=== PATIENT | female | born 1980 | race Caucasian/White ===

== ENCOUNTER 2022-09-23 07:06 | Emergency (ER) | payer OTHER ==
[~2022-09-23] VITALS: Ht 162.6 cm; Wt 63.5 kg
[2022-09-23 07:08] VITALS: BP_SYST 116
--- NOTE | 2022-09-23 07:10 | NUR ---
PT BIB EMS FROM HOME WITH C/O SEVERE ABN PAIN - 10/10, LOWER BACK PAIN, AND N/V FOR THE PAST 24 HRS. PT STATES SHE STARTED VOMITTING ONCE TODAY. HX - PT SMOKES MARIJUANA DAILY. PT IS AAX04, PT IS IN ACUTE DISTRESS, VSS, PT AMBULATES WITH A STEADY GAIT. PT IS ON SCALP TREATMENT OPERATOR SHOWING NSR. SAFETY PRECAUTIONS AND COMFORT MEASURES ARE IN PLACE. PENDING MD ASHLEYAL AND ORDERS.
--- NOTE | 2022-09-23 07:11 | NUR ---
ORALIA Clemente at bedside examining patient.
--- NOTE | 2022-09-23 07:12 | NUR ---
Patient to ER bed 05 to gown for evaluation. Side rails up. Report given to MAKAYLA WEAVER.
[2022-09-23] MEDS ORDERED: NACL 0.9% 1,000 ML IV ONE (07:30)
[2022-09-23] MEDS ORDERED: DIPHENHYDRAMINE INJ 50 MG/ML VIAL IVP ONE (07:30)
[2022-09-23] MEDS ORDERED: HALOPERIDOL LACTATE 5 MG/ML VIAL IVP ONE (07:30)
[2022-09-23 08:25] LABS: BASOPHILS % (AUTO) 0.1 % (0.0-2.0); HEMATOCRIT 38.9 % (36-48); HEMOGLOBIN 13.3 g/dL (12.0-16.0); LYMPHOCYTES # (AUTO) 1.6 K/uL (1.0-5.5); LYMPHOCYTES % (AUTO) 6.9 % (20.5-51.5); MEAN CORPUSCULAR HEMOGLOBIN 31 pg (27-31); MEAN CORPUSCULAR HGB CONC 34 % (32-36); MEAN CORPUSCULAR VOLUME 92 fL (79.0-98.0); MONOCYTES # (AUTO) 1.1 K/uL (0.0-1.0); MONOCYTES % (AUTO) 4.8 % (1.7-9.3); NEUTROPHILS # (AUTO) 20.6 K/uL (1.8-7.7); PLATELET COUNT (AUTO) 295 K/uL (130-430); RED BLOOD CELL COUNT(AUTO) 4.22 MIL/uL (4.2-6.2); RED CELL DISTRIBUTION WIDTH 13.1 % (9.0-15.0); WHITE BLOOD COUNT (AUTO) 23.4 K/uL (4.8-10.8)
[2022-09-23 08:54] LABS: CREATININE 0.91 mg/dL (0.55-1.30)
[2022-09-23 08:58] LABS: ALBUMIN 3.3 g/dL (3.4-4.8); TOTAL BILIRUBIN 1.1 mg/dL (0.0-1.0)
[2022-09-23 10:25] LABS: BASOPHILS % (AUTO) 0.2 % (0.0-2.0); HEMATOCRIT 37.1 % (36-48); HEMOGLOBIN 12.5 g/dL (12.0-16.0); LYMPHOCYTES # (AUTO) 1.9 K/uL (1.0-5.5); LYMPHOCYTES % (AUTO) 8.3 % (20.5-51.5); MEAN CORPUSCULAR HEMOGLOBIN 31 pg (27-31); MEAN CORPUSCULAR HGB CONC 34 % (32-36); MEAN CORPUSCULAR VOLUME 92 fL (79.0-98.0); MONOCYTES # (AUTO) 1.4 K/uL (0.0-1.0); MONOCYTES % (AUTO) 5.9 % (1.7-9.3); NEUTROPHILS # (AUTO) 19.8 K/uL (1.8-7.7); NEUTROPHILS % (AUTO) 85.6 % (40.0-70.0); PLATELET COUNT (AUTO) 260 K/uL (130-430); RED BLOOD CELL COUNT(AUTO) 4.04 MIL/uL (4.2-6.2); RED CELL DISTRIBUTION WIDTH 12.9 % (9.0-15.0); WHITE BLOOD COUNT (AUTO) 23.2 K/uL (4.8-10.8)
[2022-09-23] MEDS ORDERED: ONDA-8 TL (10:32)
--- NOTE | 2022-09-23 10:47 | NUR ---
PT MEDICALLY CLEARED FOR D/C. D/C INSTRUCTIONS GIVEN TO PT. PT TO FOLLOW-UP WITH PCP WITHIN 1-3 DAYS AND TO RETURN TO ED FOR WORSENING S/S. PT VERBALIZED UNDERSTANDING. PT AAOX4, NAD, VSS, WRITSTBAND REMOVED. PT AMBULATORY WITH STEADY GAIT. PT LEFT WITH ALL BELONGINGS.
[2022-09-23 10:53] VITALS: BP_SYST 117
[2022-09-23 11:59] LABS: NEUTROPHILS % (AUTO) 88.2 % (40.0-70.0)
== END 2022-09-23 10:47 | disposition home or self-care (01) ==
LOC: SED 07:06
DX: R11.10 Vomiting, unspecified (principal); D72.829 Elevated white blood cell count, unspecified; R10.13 Epigastric pain; R51.9 Headache, unspecified; F12.90 Cannabis use, unspecified, uncomplicated; Z79.899 Other long term (current) drug therapy
CPT/HCPCS: 99284; 96374; 96361; 96375; 80053; 83690; 85025; 36415; 93005; J1200; J1630; J7030

== ENCOUNTER 2022-09-27 01:29 | Inpatient (IN) | payer OTHER ==
[~2022-09-27] VITALS: Ht 154.9 cm; Wt 70.8 kg
[2022-09-27] VITALS (17 sets, daily range): BP systolic 97–156
[~2022-09-27 01:29] MED LIST: ONDA-8 TL
--- NOTE | 2022-09-27 01:36 | NUR ---
Patient triaged and placed in RM. VSS and patient appears in no acute distress at this time. Accompanied by EMS, and MD notified of need for MSE. rEPORT GIVEN TO SHE BENAVIDES.
[2022-09-27] MEDS ORDERED: ASPIRIN 81 MG TAB.CHEW PO ONE (01:45)
--- NOTE | 2022-09-27 02:12 | NUR ---
AT BEDSIDE FOR EVALUATION AND ORDERS. EKG COMPLETED. 20 GUAGE IV ESTABLISHED IN LEFT AC. SWAB FOR COVID AND INFLUENZA COLLECTED
--- NOTE | 2022-09-27 02:12 | NUR ---
Swabbed patient for Covid Sally AND INFLUENZA A & B as ordered by Dr. Smith. Patient tolerated the procedure well. Specimen dropped off at the lab.
[2022-09-27 02:24] LABS: ALANINE AMINOTRANSFERASE 21 U/L (12-78); ALBUMIN 2.5 g/dL (3.4-4.8); ASPARTATE AMINOTRANSFERASE 20 U/L (10-37); CALCIUM 9.3 mg/dL (8.4-11.0); CHLORIDE 97 mmol/L (98-107); CREATININE 1.13 mg/dL (0.55-1.30); GFR AFRICAN AMERICAN 68 mL/min (>90); GLUCOSE 101 mg/dL (70-99); TOTAL BILIRUBIN 0.3 mg/dL (0.0-1.0); UREA NITROGEN, BLOOD 9 mg/dL (8-21)
[2022-09-27 02:29] LABS: HEMATOCRIT 39.7 % (36-48); HEMOGLOBIN 13.4 g/dL (12.0-16.0); MEAN CORPUSCULAR HEMOGLOBIN 31 pg (27-31); MEAN CORPUSCULAR HGB CONC 34 % (32-36); MEAN CORPUSCULAR VOLUME 92 fL (79.0-98.0); PLATELET COUNT (AUTO) 362 K/uL (130-430); RED BLOOD CELL COUNT(AUTO) 4.32 MIL/uL (4.2-6.2); RED CELL DISTRIBUTION WIDTH 12.8 % (9.0-15.0); WHITE BLOOD COUNT (AUTO) 27.1 K/uL (4.8-10.8)
[2022-09-27 02:30] LABS: ANION GAP 11 (5-15)
[2022-09-27] MEDS ORDERED: POTASSIUM CHLORIDE 20 MEQ TAB.PRT.SR PO ONE (02:45)
[2022-09-27 02:58] LABS: BAND % (MANUAL) 18 % (0-6); BASOPHILS % (MANUAL) 0 % (0-2); EOSINOPHILS % (MANUAL) 0 % (0-7); LYMPHOCYTES % (MANUAL) 11 % (20-46); MONOCYTES % (MANUAL) 6 % (0-11)
[2022-09-27 03:12] LABS: METAMYELOCYTES % 2 % (0-0)
[2022-09-27] MEDS ORDERED: LORazepam 2 MG/ML VIAL IVP ONE ×2 (03:15→04:15)
[2022-09-27] MEDS ORDERED: iohexoL 350 mgI/mL, 100 ML INFUS..BTL IV ONE (03:19)
--- NOTE | 2022-09-27 03:20 | NUR ---
PT BECOMING INCREASINGLY AGITATED. MD AT BEDSIDE FOR EVAL. NEW MED AND RADIOLOGY ORDER
--- NOTE | 2022-09-27 03:49 | NUR ---
Patient taken to CT.
--- NOTE | 2022-09-27 03:52 | NUR ---
Patient is back from CT.
--- NOTE | 2022-09-27 04:20 | NUR ---
PT AGITATION LEVEL INCREASING. NEW MED ORDERFOR ATIVAN
--- NOTE | 2022-09-27 04:35 | NUR ---
AGAIN AT BEDSIDE. NEW ORDERS FOR ADDITIONAL RESP SUPPORT. PT PLACED ON BI PAP
[2022-09-27] MEDS ORDERED: methylPREDNISolone SOD SUCC/PF 62.5 MG/ML VIAL IVP ONE (05:00)
--- NOTE | 2022-09-27 06:04 | NUR ---
Admit bed requested Patient will be admitted to care of . Admitted to ICU unit. Diagnosis PNEUMONIA/ HYPOXIA Inpatient (Yes or No) N Observation (Yes or No) Y Orientation concerns or request close to nursing station (Yes or No) N Covid Status NEG On vent or bipap BIPAP Isolation requirements NONE Needs a sitter N From Home (Yes or if No enter name of facility) Y Requires Dialysis (Yes or No) N Med Rec Completed (Yes of No) Y
--- NOTE | 2022-09-27 07:10 | NUR ---
PT RECEIVED, CARE ASSUMED. PT OBTUNDED IN BED. PT ON BIPAP. V/S NOTED, WILL CONTINUE TO MONITOR
--- NOTE | 2022-09-27 08:16 | NUR ---
PT TAKEN TO ICU-4 WITH RT, REPORT TO PHILLY BENAVIDES.
--- NOTE | 2022-09-27 08:17 | NUR ---
Patient will be admitted to [facility]. Admitted to [ICU unit. Will go to room [4]. Belongings list completed. Complete and up to date summary report printed. SBAR report to be given at bedside with opportunity for questions.
--- NOTE | 2022-09-27 08:18 | NUR ---
814 TRANSFERRED PATIENT TO ICU 4 FROM ER 2 VIA NRB WITH 15LPM. PATIENT BACK ON BIPAP 06/10, FIO2 40%. SPO2 97%, HR 114. NO RESPIRATORY DIST Addendum: 09/27/22 at 0821 by Citlali Ovalle RT 814 TRANSFERRED PATIENT TO ICU 4 FROM ER 2 VIA NRB WITH 15LPM. PATIENT BACK ON BIPAP 06/10, FIO2 40%. SPO2 97%, HR 114. NO RESPIRATORY DISTRESS NOTED.
--- NOTE | 2022-09-27 08:44 | NUR ---
Called Dr. Garcia with a consult, spoke with Nohemi from the exchange. Dr. Sterling environmental department manager today for dr. Garcia
[2022-09-27] MEDS ORDERED: POTASSIUM CHLORIDE 40 MEQ in NS 250 ML IV ONE (08:45)
--- NOTE | 2022-09-27 08:50 | NUR ---
Called Dr. Laron Alcala with a consult, spoke with Nohemi from the exchange
[2022-09-27] MEDS ORDERED: AZITHROMYCIN 250 MG TABLET PO SCH (09:00)
[2022-09-27] MEDS ORDERED: cefTRIAXone 1 GM VIAL IM SCH (09:00)
[2022-09-27] MEDS: D5/0.45 NS 1,000 ML IV SCH ×2 (09:29→17:28)
--- NOTE | 2022-09-27 09:30 | NUR ---
PT AAOX4, DROWSY FROM ATIVAN IN ER. ASKED IF PATIENTS WANTS AND IS OK WITH ROSALES CATHETER INSERTION. PT REFUSED, STATED SHE WILL CALL AND USE BED LIZAMA. MD MCKENZIE MADE AWARE.
[2022-09-27] MEDS: IPRATROPIUM/ALBUTEROL SULFATE 3 ML AMPUL.NEB (DUONEB) INH SCH ×4 (11:00→21:30)
--- NOTE | 2022-09-27 11:30 | NUR ---
PER DREAD, PT TAKES 120MG DAILY METAHDONE PO FOR CHRONIC PAIN. CLARIFIED DOSE, DREAD STATES 120MG QDAILY PO. CALLED MD METZ FOR ORDER, TELEPHONE ORDER RECEIVED WITH READBACK.
[2022-09-27] MEDS ORDERED: METHADONE HCL 10 MG TABLET PO ONE (12:15)
[2022-09-27] MEDS: methylPREDNISolone SOD SUCC/PF 62.5 MG/ML VIAL IV SCH ×2 (14:11→22:00)
--- NOTE | 2022-09-27 14:31 | NUR ---
1415 OFF BIPAP AND PLACED ON OXYMIZER 5LPM FOR GIVING A BREAK FROM BIPAP. SPO2 94%, HR 108. PATIENT TOLERATING WELL. RN AWARE.
[2022-09-27] MEDS: cefTRIAXone 1 GM in D5W 50 ML IV SCH (18:08)
[2022-09-27] MEDS ORDERED: IPRATROPIUM/ALBUTEROL SULFATE 3 ML AMPUL.NEB (DUONEB) INH PRN (21:30)
[2022-09-28] VITALS (22 sets, daily range): BP systolic 105–137
[2022-09-28] MEDS: D5/0.45 NS 1,000 ML IV SCH ×3 (00:24→15:42)
[2022-09-28] MEDS: IPRATROPIUM/ALBUTEROL SULFATE 3 ML AMPUL.NEB (DUONEB) INH SCH ×4 (01:00→19:35)
[2022-09-28 05:26] LABS: HEMATOCRIT 31.2 % (36-48); HEMOGLOBIN 10.6 g/dL (12.0-16.0); MEAN CORPUSCULAR HEMOGLOBIN 31 pg (27-31); MEAN CORPUSCULAR HGB CONC 34 % (32-36); MEAN CORPUSCULAR VOLUME 91 fL (79.0-98.0); PLATELET COUNT (AUTO) 287 K/uL (130-430); RED BLOOD CELL COUNT(AUTO) 3.44 MIL/uL (4.2-6.2); RED CELL DISTRIBUTION WIDTH 13.4 % (9.0-15.0); WHITE BLOOD COUNT (AUTO) 24.3 K/uL (4.8-10.8)
[2022-09-28 05:34] LABS: CALCIUM 9.1 mg/dL (8.4-11.0); CREATININE 0.86 mg/dL (0.55-1.30)
[2022-09-28 05:43] LABS: ALBUMIN 2.1 g/dL (3.4-4.8); TOTAL BILIRUBIN 0.2 mg/dL (0.0-1.0)
[2022-09-28 06:14] LABS: BAND % (MANUAL) 17 % (0-6); BASOPHILS % (MANUAL) 0 % (0-2); EOSINOPHILS % (MANUAL) 0 % (0-7); LYMPHOCYTES % (MANUAL) 11 % (20-46); MONOCYTES % (MANUAL) 4 % (0-11)
[2022-09-28] MEDS: methylPREDNISolone SOD SUCC/PF 62.5 MG/ML VIAL IV SCH ×2 (06:27→14:55)
[2022-09-28] MEDS: METHADONE HCL 10 MG TABLET PO SCH (08:21)
[2022-09-28] MEDS ORDERED: DOPamine PREMIX 250 ML IV PRN (08:30)
[2022-09-28] MEDS ORDERED: LORazepam 2 MG/ML VIAL IVP PRN (08:30)
[2022-09-28] MEDS: PANTOPRAZOLE SODIUM 40 MG/VIAL (PROTONIX) IVP SCH (09:00)
--- NOTE | 2022-09-28 09:40 | NUR ---
Dietitian Recommendations * Continue regular diet * Ordered Ensure HP BID * Send snacks BID; RD entered in computrition GS, MPH, RD Please refer to RD Assessment for further details. Thanks! Addendum: 09/28/22 at [address] Amended: Links added.
--- NOTE | 2022-09-28 10:00 | NUR ---
[pt is refusing to wear ekg leads
[2022-09-28] MEDS: AZITHROMYCIN 250 MG in NS 250 ML IV SCH (11:41)
[2022-09-28] MEDS: cefTRIAXone 1 GM in D5W 50 ML IV SCH (17:59)
[2022-09-29] VITALS (12 sets, daily range): BP systolic 124–153
[2022-09-29] MEDS: IPRATROPIUM/ALBUTEROL SULFATE 3 ML AMPUL.NEB (DUONEB) INH SCH ×4 (00:25→19:00)
[2022-09-29] MEDS: methylPREDNISolone SOD SUCC/PF 62.5 MG/ML VIAL IV SCH ×4 (05:23→23:36)
[2022-09-29] MEDS: D5/0.45 NS 1,000 ML IV SCH ×4 (05:28→23:37)
[2022-09-29 05:42] LABS: BASOPHILS % (AUTO) 0.1 % (0.0-2.0); HEMATOCRIT 32.2 % (36-48); HEMOGLOBIN 10.8 g/dL (12.0-16.0); LYMPHOCYTES % (AUTO) 8.8 % (20.5-51.5); MEAN CORPUSCULAR HEMOGLOBIN 31 pg (27-31); MEAN CORPUSCULAR HGB CONC 34 % (32-36); MEAN CORPUSCULAR VOLUME 92 fL (79.0-98.0); MONOCYTES # (AUTO) 1.1 K/uL (0.0-1.0); MONOCYTES % (AUTO) 4.7 % (1.7-9.3); NEUTROPHILS # (AUTO) 19.9 K/uL (1.8-7.7); NEUTROPHILS % (AUTO) 86.4 % (40.0-70.0); PLATELET COUNT (AUTO) 328 K/uL (130-430); RED BLOOD CELL COUNT(AUTO) 3.51 MIL/uL (4.2-6.2); RED CELL DISTRIBUTION WIDTH 13.6 % (9.0-15.0); WHITE BLOOD COUNT (AUTO) 23.1 K/uL (4.8-10.8)
[2022-09-29 06:02] LABS: ALBUMIN 2.1 g/dL (3.4-4.8); CALCIUM 9.2 mg/dL (8.4-11.0); CREATININE 0.92 mg/dL (0.55-1.30); TOTAL BILIRUBIN 0.1 mg/dL (0.0-1.0)
--- NOTE | 2022-09-29 07:30 | NUR ---
RECEIVED PT FROM TIM RN. PT IS AWAKE AND ALERT X3, ON BIPAP 12/6 @ 35% FIO2 BREATHING E/U. IN NO DISTRESS. BED LOW AND CALL LIGHT IN EASY REACH. WILL CONTINUE TO MONITOR CLOSELY.
[2022-09-29] MEDS: AZITHROMYCIN 250 MG in NS 250 ML IV SCH (09:29)
[2022-09-29] MEDS: PANTOPRAZOLE SODIUM 40 MG/VIAL (PROTONIX) IVP SCH (09:30)
[2022-09-29] MEDS: METHADONE HCL 10 MG TABLET PO SCH (09:31)
[2022-09-29 10:00] LABS: BARBITURATE, URINE NEGATIVE (NEG <=200); BENZODIAZEPINE, URINE POSITIVE (NEG <=150); CANNABINOID, URINE POSITIVE (NEG <=50); COCAINE, URINE NEGATIVE (NEG <=150); METHAMPHETAMINES SCREEN,URINE NEGATIVE (NEG <=500); OPIATE, URINE NEGATIVE (NEG <=100); PHENCYCLIDINE SCREEN,URINE NEGATIVE (NEG <=25); UR TRICYCLIC ANTIDEPRESSANTS NEGATIVE (NEG <=300); URINE AMPHETAMINE NEGATIVE (NEG <=500); URINE METHADONE POSITIVE (NEG <=200); URINE OXYCODONE SCREEN NEGATIVE (NEG <=100); URINE PROPOXYPHENE SCREEN NEGATIVE (NEG <=300)
--- NOTE | 2022-09-29 12:02 | NUR ---
OPENING NOTES: RECEIVED SBAR FROM ICU NURSE LYNDON RN, PATIENT IS STABLE, NO S/S DISTRESS NC 4 LTS, BED AT LOW AND LOCKED POSITION CALL LIGHT IN REACH ALL SAFETY CHECKS DONE AND WILL DO THOUGHT THE DAY.
[2022-09-29] MEDS ORDERED: methylPREDNISolone SOD SUCC/PF 62.5 MG/ML VIAL IV ONE (14:15)
[2022-09-29] MEDS: traMADol HCL HCL 50 MG TABLET (ULTRAM) PO PRN ×2 (14:44→23:46)
--- NOTE | 2022-09-29 14:49 | NUR ---
Machine Rope Maker DESKTOP SUPPORT ENGINEER introduced self to pt. and . Also present were couples daughter, Megha (11/01/09). Pt. stated she also has a son, Armando (09/17/07). Dtr. Megha stated she attends attend middle school and brother attends [employer]. Pt. was just downgraded from ICU. During this interview, DESKTOP SUPPORT ENGINEER experiences this pt. to be tearful , emotional and at times combative with her . DESKTOP SUPPORT ENGINEER asked who was interjecting if he wanted to stay, he would have to allow for DESKTOP SUPPORT ENGINEER to ask questions. (To be continued on 09/29/22). Addendum: 09/30/22 at 1142 by Talia MELENDREZ Machine Rope Maker Continuation from 09/29/22 initial contact agreed not to interject. DESKTOP SUPPORT ENGINEER continued interviewing pt who at times continued to be tearful, emotional and upset at the same time. DESKTOP SUPPORT ENGINEER reassured pt. she was in good hands. DESKTOP SUPPORT ENGINEER asked pt. about her living arrangements. The family of 4 reside at the [facility], costing about $500 weekly not including the cost of food. Her and 's combined income (husbands senior care, pts. disability) is $3000 per month. Pt. stated it is not enough. DESKTOP SUPPORT ENGINEER asked pt. if she had ever been Dx with anxiety, or depression. Pt. stated she use to take meds for anxiety and depression, but could not recall the name of the medication. DESKTOP SUPPORT ENGINEER suggested she inquire with her attending re. an evaluation for anti-anxiety med. Pt. denied being suicidal today. DESKTOP SUPPORT ENGINEER spoke to Rn. and requested she ask the attending to address this concern. DESKTOP SUPPORT ENGINEER called todays Rn. who stated she was in the room at the time of the CABLE SYSTEMS INSTALLER evaluation of pt who assessed pt. for depression and anxiety. Pt. stated every 28 days, they have to [place] the [facility] and have to stay in the family van for 3 days until they can go back to the [facility] for another 28 days. Pt and both stated they are on Methadone, daily. Both did not like to talk about this subject and became excited stating they are not drug addicts. They stated they take methadone to avoid any withdrawals from pain meds., not because they are drug addicts. DESKTOP SUPPORT ENGINEER provided the family with numerous homeless packet resources and explained them. DESKTOP SUPPORT ENGINEER gave pt. the contact info for her PCP, Dr. Adriel Lindo. DESKTOP SUPPORT ENGINEER stated she may need to make a follow up appointment with him. DESKTOP SUPPORT ENGINEER asked which pharmacy they use and their reply was the [facility] on [facility]. DESKTOP SUPPORT ENGINEER will remain available as needed. Addendum: 09/30/22 at 1153 by Talia Cohn MSW Machine Rope Maker DESKTOP SUPPORT ENGINEER spoke to pt who had been sleeping. Pt. was not in agreement to go to a SNF to get stronger, stating, "I can take care of myself". DESKTOP SUPPORT ENGINEER asked pt. to just think about it so this could be a safe discharge and she has time to get stronger. DESKTOP SUPPORT ENGINEER asked pt. to think about this plan. DESKTOP SUPPORT ENGINEER also asked pt. if they were currently in the [facility] or in the van. Pt. stated they were in the [facility] at this moment. DESKTOP SUPPORT ENGINEER called to speak to , no answer, left a message. .
[2022-09-29] MEDS: cefTRIAXone 1 GM in D5W 50 ML IV SCH (18:29)
--- NOTE | 2022-09-29 18:29 | NUR ---
CLOSING NOTES: PATIENT REMAINED STABLE TODAY, ALL SAFETY CHECKS DONE THOUGHT THE DAY, PATIENT RESTING WELL IN BED WATCHING TV, BED AT LOW AND LOCKED POSITION IV INTACT CLEAN AND INTACT, FAMILY VISITED PATIENT TODAY, NO S/S OF ANY DISTRESS WILL GIVE PM SHIFT NURSE BEDSIDE SBAR.
--- NOTE | 2022-09-29 20:05 | NUR ---
PM ASSESSMENT; - Patient is awake, alert, oriented X 4. Patient oriented to hospital room, call light, toileting, pain management and safety-teach back done. Pt denies any chest pain,pain,sob,or any acute distress. A telemetry shows 58bpm bradycardia. Patient informed that will be nurse and that their room number is 118-A. Pt is on oximizer with 4L l5bdl=68%. IVF infusing well. Pt uses BIPAP machine at night for sleep apnea. Iv site patent, no s/s any infiltration noted. Call light within reach, side rails x2. Cont to monitor pt.
--- NOTE | 2022-09-29 23:46 | NUR ---
NOTES; PAIN MGMT GIVEN -Pt is c/o headache, gave pain med for pain mgmt upon pt's request. Call light w/in reach, side rails x2. cont to monitor pt.
[2022-09-30 00:05] VITALS: BP_SYST 156
--- NOTE | 2022-09-30 02:03 | NUR ---
NOTES; -Pt is resting in bed comfortably. A telemetry show sinus bradycardia 36-44 bpm. Pt is asymptomatic. Elevate BP 174/97, 96.6, 16, o9szy=74% with Bipap machine for sleeping. Will call Dr. Villalta regarding bradycardia.
--- NOTE | 2022-09-30 02:09 | NUR ---
NOTES; Notified Dr. Villalta REGARDING BRADYCARDIA,EPISODE OF JUNCTIONAL,AND OCCASIONAL P-WAVES. -Notified Dr. Villalta regarding telemetry show sinus bradycardia 36-44 bpm. Pt is asymptomatic. Elevate BP 174/97, 96.6, 16, n7tfa=82% with Bipap machine for sleep apnea. Dr. Villalta said, " It's okay and EKG in am. " continue to monitor pt.
[2022-09-30] MEDS: methylPREDNISolone SOD SUCC/PF 62.5 MG/ML VIAL IV SCH (05:33)
--- NOTE | 2022-09-30 05:33 | NUR ---
ROUNDS; -Pt is asleep, easily arousable upon making round when gave medication ivp. Patti-RT told earlier that pt is still wanting to use Bipap machine. No s/s any acute distress noted. Pt is still on Bipap machine. All safety measures in place. Call light w/in reach. Cont to monitor pt.
[2022-09-30 05:46] LABS: ALBUMIN 2.2 g/dL (3.4-4.8); CALCIUM 8.8 mg/dL (8.4-11.0); CREATININE 0.92 mg/dL (0.55-1.30); TOTAL BILIRUBIN 0.1 mg/dL (0.0-1.0)
--- NOTE | 2022-09-30 06:30 | NUR ---
CLOSING NOTES; -Pt is asleep. No s/s any acute distress noted. Pt is still on Bipap machine. Pt's condition stable. IV site patent no s/s any infiltration noted. IVF infusing well. All safety measures in place, side rails x2. Call light w/in reach. Will endorse to next nurse to cont care.
[2022-09-30] MEDS: IPRATROPIUM/ALBUTEROL SULFATE 3 ML AMPUL.NEB (DUONEB) INH SCH ×3 (07:47→19:52)
[2022-09-30 08:02] VITALS: BP_SYST 166
[2022-09-30 08:16] LABS: BASOPHILS % (AUTO) 0.2 % (0.0-2.0); EOSINOPHILS # (AUTO) 0.2 K/uL (0.0-0.4); EOSINOPHILS % (AUTO) 1.4 % (0.0-4.0); HEMATOCRIT 32.5 % (36-48); HEMOGLOBIN 10.8 g/dL (12.0-16.0); LYMPHOCYTES # (AUTO) 1.7 K/uL (1.0-5.5); LYMPHOCYTES % (AUTO) 11.2 % (20.5-51.5); MEAN CORPUSCULAR HEMOGLOBIN 31 pg (27-31); MEAN CORPUSCULAR HGB CONC 33 % (32-36); MEAN CORPUSCULAR VOLUME 92 fL (79.0-98.0); MONOCYTES # (AUTO) 0.4 K/uL (0.0-1.0); MONOCYTES % (AUTO) 2.8 % (1.7-9.3); NEUTROPHILS # (AUTO) 12.4 K/uL (1.8-7.7); PLATELET COUNT (AUTO) 334 K/uL (130-430); RED BLOOD CELL COUNT(AUTO) 3.52 MIL/uL (4.2-6.2); RED CELL DISTRIBUTION WIDTH 13.5 % (9.0-15.0); WHITE BLOOD COUNT (AUTO) 14.7 K/uL (4.8-10.8)
[2022-09-30 08:18] LABS: NEUTROPHILS % (AUTO) 84.4 % (40.0-70.0)
[2022-09-30] MEDS: PANTOPRAZOLE SODIUM 40 MG/VIAL (PROTONIX) IVP SCH (08:30)
[2022-09-30] MEDS: AZITHROMYCIN 250 MG in NS 250 ML IV SCH (08:30)
[2022-09-30] MEDS: METHADONE HCL 10 MG TABLET PO SCH (08:30)
[2022-09-30] MEDS ORDERED: THEOPHYLLINE ANHYDROUS 200 MG CAP.ER.24H PO ONE (10:00)
--- NOTE | 2022-09-30 11:11 | NUR ---
PLACED PT ON ROOM FOR ROOM AIR TRIAL. PT IS HR 50 SPO2 92%. TOLERATING WELL. PT IS SLEEPING COMFORTABLY. NO DISTRESS NOTED. WILL CONTINUE TO MONITOR.
[2022-09-30 11:13] VITALS: BP_SYST 177
[2022-09-30] MEDS ORDERED: hydrALAZINE HCL 20 MG/ML VIAL IVP PRN (11:45)
[2022-09-30] MEDS: D5/0.45 NS 1,000 ML IV SCH ×2 (13:29→15:43)
--- NOTE | 2022-09-30 13:48 | NUR ---
during 1300 tx for pt and found pt on bipap. asked pt why she ws back on she stated she went to restrrom and became sob and wants it on. she states she feels better. tillman of [facility] with pt is to try and take bipap off after tx and see how she feels. pt agrees. no distress was when i assessed pt. hr 66 spo2 99% bp is 140/87. will continue to monitor.
[2022-09-30] MEDS: THEOPHYLLINE ANHYDROUS 200 MG CAP.ER.24H PO SCH ×2 (15:41→20:51)
[2022-09-30 16:58] VITALS: BP_SYST 118
[2022-09-30] MEDS: cefTRIAXone 1 GM in D5W 50 ML IV SCH (17:37)
[2022-09-30 19:51] VITALS: BP_SYST 135
--- NOTE | 2022-09-30 19:51 | NUR ---
PM ASSESSMENT; - Patient is awake, alert, oriented X 4. Patient oriented to hospital room, call light, toileting, pain management and safety-teach back done. Pt denies any chest pain,pain,sob,or any acute distress. Patient informed that will be nurse and that their room number is 118-A. Discussed poc,all safety measures, and to use call light whenever needs help to use bathroom or if experiencing any sob or acute distress, pt verbalized understanding. Pt is on Oxymizer with 3L m0owg=73%. IVF infusing well. Pt uses BIPAP machine at night for sleep apnea. Left hand IV site patent, no s/s any infiltration noted. Call light within reach, side rails x2. Cont to monitor pt. Addendum: 10/01/22 at 0307 by [facility], MAKAYLA BENAVIDES CORRECTION; PT IS ON 3L OXY N/C, NOT OXYMIZER.
[2022-09-30] MEDS: traMADol HCL HCL 50 MG TABLET (ULTRAM) PO PRN (20:50)
[2022-09-30] MEDS: METHYLPREDNISOLONE SOD SUCC 40 MG/ML VIAL IVP SCH (20:50)
--- NOTE | 2022-10-01 00:45 | NUR ---
ROUNDS; -Pt is resting in bed comfortably. No s/s any acute distress noted. A telemetry shows bradycardia 56-58 bpm, e7ikm=15% with Bipap machine for sleep apnea. All safety measures in place. Call light w/in reach. cont to monitor pt.
[2022-10-01] MEDS: IPRATROPIUM/ALBUTEROL SULFATE 3 ML AMPUL.NEB (DUONEB) INH SCH ×4 (00:48→20:06)
[2022-10-01 01:06] VITALS: BP_SYST 141
[2022-10-01 05:32] LABS: CALCIUM 8.4 mg/dL (8.4-11.0); CREATININE 0.94 mg/dL (0.55-1.30)
[2022-10-01 05:40] LABS: BASOPHILS % (AUTO) 0.2 % (0.0-2.0); HEMATOCRIT 34.5 % (36-48); HEMOGLOBIN 11.5 g/dL (12.0-16.0); LYMPHOCYTES # (AUTO) 2.3 K/uL (1.0-5.5); LYMPHOCYTES % (AUTO) 12.2 % (20.5-51.5); MEAN CORPUSCULAR HEMOGLOBIN 31 pg (27-31); MEAN CORPUSCULAR HGB CONC 33 % (32-36); MEAN CORPUSCULAR VOLUME 92 fL (79.0-98.0); MONOCYTES # (AUTO) 0.9 K/uL (0.0-1.0); MONOCYTES % (AUTO) 4.8 % (1.7-9.3); NEUTROPHILS # (AUTO) 15.6 K/uL (1.8-7.7); NEUTROPHILS % (AUTO) 82.8 % (40.0-70.0); PLATELET COUNT (AUTO) 355 K/uL (130-430); RED BLOOD CELL COUNT(AUTO) 3.75 MIL/uL (4.2-6.2); RED CELL DISTRIBUTION WIDTH 13.4 % (9.0-15.0); WHITE BLOOD COUNT (AUTO) 18.9 K/uL (4.8-10.8)
[2022-10-01] MEDS: D5/0.45 NS 1,000 ML IV SCH ×2 (05:48→07:09)
--- NOTE | 2022-10-01 07:01 | NUR ---
CLOSING NOTES; -Pt is asleep. No s/s any acute distress noted. Pt is still on Bipap machine. Pt's condition stable. Pt refused IVF during midnight until now. IV site patent no s/s any infiltration noted. All safety measures in place, side rails x2. Call light w/in reach. Will endorse to next nurse to cont care.
--- NOTE | 2022-10-01 07:09 | NUR ---
NOTES; -Pt is now on room air v6hnc=46-62%. Pt took off the Bipap mask and leave the Bipap machine on and alarming now. Also, pt is now okay to infuse IVF same rate. will endore to next nurse to cont care. Calling resp therapist to turn off.
[2022-10-01 07:45] VITALS: BP_SYST 116
--- NOTE | 2022-10-01 07:45 | NUR ---
Opening Notes Patient laying in bed, watching TV. A/O x 4, Japanese speaking. Patient Breathing even and unlabored on nasal cannula. No pain, no distress. Patient is on a regular diet. Patient has LH 24g NS 125/hr. Patient is BRP with assistants . Bed is locked in lowest position. Call light within reach, all needs met, will continue with plan of care.
--- NOTE | 2022-10-01 08:00 | NUR ---
Oxygenation Saturations Patient is on 3lpm of oxygen via NC. Patient noted that when she walks to restroom she removes her NC, when she returns we noted her short of breath. O2 saturations checked and it is between 84-88%. Reminded patient to place NC back on and her saturations went up to 90-94%. Patient was reminded to call for help when going to the restroom so that we can help her go to the restroom with a portable tank. Patient educated.
[2022-10-01 08:32] VITALS: BP_SYST 116
[2022-10-01] MEDS: METHADONE HCL 10 MG TABLET PO SCH (09:26)
[2022-10-01] MEDS: THEOPHYLLINE ANHYDROUS 200 MG CAP.ER.24H PO SCH ×3 (09:31→20:57)
[2022-10-01] MEDS: AZITHROMYCIN 250 MG in NS 250 ML IV SCH (10:03)
[2022-10-01] MEDS: PANTOPRAZOLE SODIUM 40 MG/VIAL (PROTONIX) IVP SCH (10:03)
[2022-10-01] MEDS: METHYLPREDNISOLONE SOD SUCC 40 MG/ML VIAL IVP SCH ×2 (10:04→20:57)
[2022-10-01 11:51] VITALS: BP_SYST 112
--- NOTE | 2022-10-01 12:15 | NUR ---
Noon notes Patient laying in bed, watching TV. Patient Breathing even and unlabored on nasal cannula 3LPM. Bed is locked in lowest position. Call light within reach, all needs met, will continue with plan of care.
--- NOTE | 2022-10-01 12:23 | NUR ---
Nutrition F/U RD reviewed pts current EMR including diet hx, physician notes, nursing notes, pertinent labs/meds/procedures, care trends and care activity. Subjective Information RD rounded to pt room and s/w pt. She reports eating pretty well but still doesnt have her full appetite back. RD asked if she liked the snacks we were sending and she said yes please keep sending. Pt reports having diarrhea but no other GI symptoms. She denies any FA. Per EMR review: active bowel sounds; currently on 2L-NC. Pt is likely meeting nutritional needs at this time. Current Diet Order/Nutrition Support Regular, Ensure HP BID x 3 days % PO intake Fair avg of 60% x 6 meals (improving) Last BM 09/30 x 2 Estimated Energy Expenditure (kcals/day) 7975-3867 kcal (30-35 kcal/kg ABW [54 kg] d/t sepsis) Estimated Protein Required (g/day) 54-81 g (1-1.5 g/kg ABW [54 kg] d/t sepsis) Estimated Fluid Required (l/day) 1.6-1.8 L ( 1mL/kcal maintenance) Problem/Etiology/Signs/Symptoms * Increased energy and protein utilization r/t metabolic demands AEB estimated nutritional needs for sepsis (ongoing) Expected Outcomes/Goals PO intake provides >85% estimated nutrient needs, nutrition-related labs trending WNL, continued skin integrity, BM q1-3 days Dietitian Recommendations * Continue regular diet, Ensure HP BID * Continue sending snacks BID Follow up *Moderate risk: f/u in 3-5 days GS, MPH, RD
--- NOTE | 2022-10-01 12:24 | NUR ---
Dietitian Recommendations * Continue regular diet, Ensure HP BID * Continue sending snacks BID GS, MPH, RD Please refer to Nutrition F/U for further details. Thanks!
--- NOTE | 2022-10-01 13:48 | NUR ---
PHYSICAL THERAPY CO-SIGN The Physical Therapy Progress Notes documented by Lead Dental Assistant have been reviewed. Reviewed/Co-Signed by: Rajesh Barker Documentation Done by:RAZA JACOME Addendum: 10/01/22 at 1349 by Rajesh Barker PT Amended: Links added.
--- NOTE | 2022-10-01 16:10 | NUR ---
Notes Patient laying in bed, watching TV while having a visit from her daughter. Patient Breathing even and unlabored on nasal cannula 3LPM. Bed is locked in lowest position. Call light within reach, all needs met, will continue with plan of care.
[2022-10-01 16:16] VITALS: BP_SYST 115
--- NOTE | 2022-10-01 16:30 | NUR ---
CM: DC barrier: pt desat with activity, WBC 18.9 . Per PT's note, pt walks 200 feet with 3l NC, feeling fatigue post ambulator. CM continue to monitor home o2 and bipap need. Pt base line, not using oxgen, lives in [facility]. Pt does not meet snf criteria due to her age.
[2022-10-01] MEDS: cefTRIAXone 1 GM in D5W 50 ML IV SCH (17:16)
--- NOTE | 2022-10-01 18:38 | NUR ---
Closing Note Patient laying in bed, watching TV with daughter at bedside. A/O x 4, Japanese speaking. Patient Breathing even and unlabored on nasal cannula. No pain, no distress. Patient is on a regular diet. Patient has LH 24g SL. Patient is BRP with assistants . Bed is locked in lowest position. Call light within reach, all needs met, will endorse to shift superintendent caustic cresylate nurse.
[2022-10-01 19:30] VITALS: BP_SYST 149
--- NOTE | 2022-10-01 19:30 | NUR ---
PM ASSESSMENT; - Patient is awake, alert, oriented X 4. Patient oriented to hospital room, call light, toileting, pain management and safety-teach back done. Pt denies any chest pain,pain,sob,or any acute distress. Discussed poc,all safety measures, and to use call light whenever needs help to use bathroom or if experiencing any sob or acute distress, pt verbalized understanding. Pt is sitting in bed on room air j8bpu=80-80%. Saline humza of left hand IV site patent, no s/s any infiltration noted. Call light within reach, side rails x2. Cont to monitor pt.
[2022-10-01] MEDS: traMADol HCL HCL 50 MG TABLET (ULTRAM) PO PRN (20:57)
--- NOTE | 2022-10-01 22:15 | NUR ---
NOTES; PT IS COUGH AND NEED COUGH MEDICATION -WILL PAGE MD
--- NOTE | 2022-10-01 22:16 | NUR ---
NOTES; CALLED DR. METZ [phone] NO ANSWER AND MAILBOX FULLED. WILL PAGE EXCHANGE LINE
--- NOTE | 2022-10-01 22:24 | NUR ---
NOTES; PAGED TUCKER-SENIOR MANAGER ASSET PROTECTION [phone] METZ, WAITING FOR CALLBACK. Addendum: 10/01/22 at 2330 by [facility] Jason Mackenzie RN RN ADDITIONAL NOTES; REGARDING COUGH MEDS
--- NOTE | 2022-10-01 23:34 | NUR ---
NOTES; CALLED DR. METZ [phone] NO ANSWER AND MAILBOX FULLED.
[2022-10-02] VITALS: BP_SYST 128
[2022-10-02] MEDS: IPRATROPIUM/ALBUTEROL SULFATE 3 ML AMPUL.NEB (DUONEB) INH SCH ×4 (01:00→19:56)
--- NOTE | 2022-10-02 01:20 | NUR ---
CLOSING NOTES; -Pt is still resting in bed. Pt is not using Bipap machine yet, instructed pt to call if needs to use it, she verbalized understanding. Pt's condition stable. All safety measures in place, side rails x2. Call light w/in reach. Endorsed to Melva-nurse to continuity of care.
[2022-10-02 07:35] VITALS: BP_SYST 120
--- NOTE | 2022-10-02 07:35 | NUR ---
Opening note Patient laying in bed, having breakfast. A/O x 4, [place]ine[place] speaking. Patient Breathing even and unlabored on nasal cannula. No pain, no distress. Patient is on a regular diet. Patient has 24g SL. Patient is BRP. Bed is locked in lowest position. Call light within reach, all needs met, will continue with plan of care.
[2022-10-02] MEDS: METHADONE HCL 10 MG TABLET PO SCH (08:46)
[2022-10-02] MEDS: THEOPHYLLINE ANHYDROUS 200 MG CAP.ER.24H PO SCH ×3 (08:47→21:21)
[2022-10-02] MEDS ORDERED: guaiFENesin 200 MG/10 ML UDC PO PRN (09:00)
[2022-10-02] MEDS: traMADol HCL HCL 50 MG TABLET (ULTRAM) PO PRN ×2 (09:28→21:22)
[2022-10-02] MEDS: PANTOPRAZOLE SODIUM 40 MG/VIAL (PROTONIX) IVP SCH (09:28)
[2022-10-02] MEDS: METHYLPREDNISOLONE SOD SUCC 40 MG/ML VIAL IVP SCH ×2 (09:29→20:57)
--- NOTE | 2022-10-02 09:49 | NUR ---
NAUSEA AND VOMITING Patient noted to have vomited 150cc after giving patient her Robitussin PO. AQUILES Rush was informed and gave new orders for Zofran IV. Orders carried out.
[2022-10-02] MEDS ORDERED: ONDANSETRON HCL 4 MG/2 ML VIAL IM PRN (10:00)
[2022-10-02] MEDS ORDERED: IPRATROPIUM/ALBUTEROL SULFATE 3 ML AMPUL.NEB (DUONEB) INH PRN (10:26)
--- NOTE | 2022-10-02 10:40 | NUR ---
PATIENT IS RESTING ON THE BED AND ON ROOM AIR. SPO2 93%, HR 73. NO RESPIRATORY DISTRESS NOTED.
[2022-10-02 11:06] VITALS: BP_SYST 138
--- NOTE | 2022-10-02 11:55 | NUR ---
PHYSICAL THERAPY CO-SIGN The Physical Therapy Progress Notes documented by Dermatology Nurse Practitioner have been reviewed. Reviewed/Co-Signed by: Rajesh Barker Documentation Done by:RAZA JACOME Addendum: 10/02/22 at 1155 by Rajesh Barker PT Amended: Links added.
--- NOTE | 2022-10-02 12:07 | NUR ---
Noon notes MD Garrido at bedside checking on patient. Patient is resting with family at her bedside.
[2022-10-02 15:45] VITALS: BP_SYST 133
[2022-10-02] MEDS: cefTRIAXone 1 GM in D5W 50 ML IV SCH (18:21)
--- NOTE | 2022-10-02 18:30 | NUR ---
Closing Notes Patient laying in bed, with her family at bedside. A/O x 4, Guyanese speaking. Patient Breathing even and unlabored on nasal cannula. No pain, no distress. Patient is on a regular diet. Patient has LH 24g SL. Patient is BRP. Bed is locked in lowest position. Call light within reach, all needs met, will endorse to shift superintendent caustic cresylate nurse.
--- NOTE | 2022-10-02 23:22 | NUR ---
pt vital;s are stable aox4,nocomplain of shortness of breath or chest pain .scheduledmedication admistered.pain management received. comfort measures provided. calllight is within reach
[2022-10-03 00:37] VITALS: BP_SYST 126
[2022-10-03] MEDS: IPRATROPIUM/ALBUTEROL SULFATE 3 ML AMPUL.NEB (DUONEB) INH SCH ×5 (01:00→23:56)
[2022-10-03 06:15] VITALS: BP_SYST 129
[2022-10-03 06:40] LABS: BASOPHILS % (AUTO) 0.2 % (0.0-2.0); HEMOGLOBIN 13.2 g/dL (12.0-16.0); LYMPHOCYTES # (AUTO) 3.1 K/uL (1.0-5.5); LYMPHOCYTES % (AUTO) 19.2 % (20.5-51.5); MEAN CORPUSCULAR HEMOGLOBIN 31 pg (27-31); MEAN CORPUSCULAR HGB CONC 34 % (32-36); MEAN CORPUSCULAR VOLUME 91 fL (79.0-98.0); MONOCYTES # (AUTO) 0.6 K/uL (0.0-1.0); MONOCYTES % (AUTO) 3.8 % (1.7-9.3); NEUTROPHILS # (AUTO) 12.4 K/uL (1.8-7.7); NEUTROPHILS % (AUTO) 76.8 % (40.0-70.0); PLATELET COUNT (AUTO) 445 K/uL (130-430); RED BLOOD CELL COUNT(AUTO) 4.28 MIL/uL (4.2-6.2); RED CELL DISTRIBUTION WIDTH 13.3 % (9.0-15.0); WHITE BLOOD COUNT (AUTO) 16.2 K/uL (4.8-10.8)
[2022-10-03 07:40] LABS: CALCIUM 9.1 mg/dL (8.4-11.0); CREATININE 1.03 mg/dL (0.55-1.30)
--- NOTE | 2022-10-03 07:45 | NUR ---
INITIAL NOTE: Received Patient sitting in bed. Awake, alert, oriented x 4. Patient states she is anticipating discharge within the next day or so. States slight pain upon coughing but otherwise pain is under control. No c/o SOB. No signs of acute distress noted. Lungs clear, all lobes. No edema noted. 24 gauge IV to left hand. Skin intact. Family is at bedside. Bed in low position, locked. Call light & table are within reach.
[2022-10-03 08:00] VITALS: BP_SYST 141
--- NOTE | 2022-10-03 09:30 | NUR ---
Patient resting in bed. Family at bedside. Patient ate 95% of breakfast. Due AM medications were administered as ordered. Tolerated well. No c/o pain. No signs of distress noted. Bed in low, locked position. Call light & personal items within reach.
[2022-10-03] MEDS: THEOPHYLLINE ANHYDROUS 200 MG CAP.ER.24H PO SCH ×3 (09:32→20:52)
[2022-10-03] MEDS: METHADONE HCL 10 MG TABLET PO SCH (09:38)
[2022-10-03] MEDS: METHYLPREDNISOLONE SOD SUCC 40 MG/ML VIAL IVP SCH ×2 (10:04→20:52)
[2022-10-03] MEDS: PANTOPRAZOLE SODIUM 40 MG/VIAL (PROTONIX) IVP SCH (10:04)
--- NOTE | 2022-10-03 10:15 | NUR ---
IV MEDICATION PATIENTS MEDICATION GIVEN PER ORDER. NO OTHER NEEDS AT THIS TIME. CALL LIGHT IS WITH HER EDUCATED TO USE FOR ASSISTANCE.
[2022-10-03 12:00] VITALS: BP_SYST 134
--- NOTE | 2022-10-03 12:00 | NUR ---
Patient noted that the tape on her left hand IV was very loose. Nurse verified that the IV catheter was partially bent & coming out. IV catheter was removed. Upon removing catheter, no blood was seen at site. Covered with clean, dry dressing. New IV was placed using 24 gauge at left forearm. Good blood return & flushed.
[2022-10-03] MEDS: traMADol HCL HCL 50 MG TABLET (ULTRAM) PO PRN ×2 (13:52→22:47)
--- NOTE | 2022-10-03 14:00 | NUR ---
Patient resting comfortably in bed. Family at bedside. Patient ate 100% of lunch. No c/o pain. No signs of distress noted. Bed in low, locked position. Call light & personal items within reach.
--- NOTE | 2022-10-03 15:44 | NUR ---
PHYSICAL THERAPY CO-SIGN The Physical Therapy Progress Notes documented by Superintendent Operating have been reviewed. Reviewed/Co-Signed by: Rajesh Barker Documentation Done by:RAZA JACOME Addendum: 10/03/22 at 1545 by Rajesh Barker PT Amended: Links added.
[2022-10-03 16:00] VITALS: BP_SYST 130
--- NOTE | 2022-10-03 16:00 | NUR ---
Patient in bed in position of comfort. Patient took PRN pain meds, states relief. No s/s of distress noted. Bed in low & locked position. Call light & personal items within reach.
--- NOTE | 2022-10-03 17:24 | NUR ---
HIGH ALERT NOTE: Called Dr. METZ back at [phone] identified within the medical roster to verify physician authenticity.
[2022-10-03] MEDS ORDERED: POTASSIUM CHLORIDE 20 MEQ TAB.PRT.SR ONE (17:27)
[2022-10-03] MEDS ORDERED: POTASSIUM CHLORIDE 20 MEQ TAB.PRT.SR PO ONE (17:30)
--- NOTE | 2022-10-03 18:30 | NUR ---
CLOSING NOTE: Patient currently in bed in position of comfort. Family at bedside. Dinner tray still at bedside.Patient denies pain at this time. No s/s of distress noted. All meds were administered per orders. All needs met. Patient was given wipes to perform bed bath & personal care & some deodorant & lotion. Bed in low & locked position. Call light & personal items within reach.
[2022-10-03 20:00] VITALS: BP_SYST 129
[2022-10-03] MEDS: cefTRIAXone 1 GM in D5W 50 ML IV SCH (20:54)
[2022-10-04 04:00] VITALS: BP_SYST 119
--- NOTE | 2022-10-04 06:25 | NUR ---
Miss Shay has been assesses as indicated. She has been noted to be both pleasant and cooperative. She has been successfully treated for a headache this shift. She ambulates to the rest room with no assistance. IV access was changed d/t tenderness . bruising and a complaint of pain with flushing. She hopes to be DC to home today. alung sounds are clear no SOB with exertion Addendum: 10/04/22 at 0628 by [employer] MAKAYLA Mackenzie RN and no cough have been noted. She is presently resting quietly
[2022-10-04] MEDS: IPRATROPIUM/ALBUTEROL SULFATE 3 ML AMPUL.NEB (DUONEB) INH SCH (07:01)
--- NOTE | 2022-10-04 07:25 | NUR ---
OPENING NOTES: RECEIVED BEDSIDE SBAR FROM PM SHIFT NURSE DEISY RN, NO S/S OF ANY DISTRESS, NON LABOR BREATHING, RESTING WELL IN BED WITH EYES CLOSED, BED AT LOW AND LOCKED POSITION CALL LIGHT IN REACH, SAFETY CHECKS DONE AND WILL DO THOUGHT THE DAY. WILL CONT TO MONITOR PATIENT THOUGHT THE DAY.
--- NOTE | 2022-10-04 07:47 | NUR ---
PATIENT UP AMBULATING IN ROOM NON-LABOR BREATHING, REQUESTING TO GO HOME.
--- NOTE | 2022-10-04 07:54 | NUR ---
Handoff has beren given to Tori
[2022-10-04] MEDS: THEOPHYLLINE ANHYDROUS 200 MG CAP.ER.24H PO SCH (08:36)
[2022-10-04] MEDS: traMADol HCL HCL 50 MG TABLET (ULTRAM) PO PRN (08:36)
[2022-10-04] MEDS: METHADONE HCL 10 MG TABLET PO SCH (08:37)
[2022-10-04] MEDS: PANTOPRAZOLE SODIUM 40 MG/VIAL (PROTONIX) IVP SCH (09:54)
[2022-10-04] MEDS: METHYLPREDNISOLONE SOD SUCC 40 MG/ML VIAL IVP SCH (09:54)
[2022-10-04 11:28] VITALS: BP_SYST 124
[2022-10-04] MEDS ORDERED: PRED20TA PO (12:24)
[2022-10-04] MEDS ORDERED: LEVO750T64 PO (12:24)
[2022-10-04 12:56] VITALS: BP_SYST 112
--- NOTE | 2022-10-06 14:50 | NUR ---
PHYSICAL THERAPY CO-SIGN The Physical Therapy Progress Notes documented by Laundry Operator have been reviewed. Reviewed/Co-Signed by: Rajesh Barker Documentation Done by:FRANCHESKA PEMBERTON Addendum: 10/06/22 at 1451 by Rajesh Barker PT Amended: Links added.
== END 2022-10-04 23:58 | disposition home or self-care (01) | DRG 720 ==
LOC: SED 01:29 → SIC 05:53 → OBSVTOIN 10:54 → STU 09-29 11:33
PROVIDERS: ADMIT Internal Medicine; ATTEND Internal Medicine
PROC: 5A09357 Assistance with Respiratory Ventilation, Less than 24 Consecutive Hours, Continuous Positive Airway Pressure (ICD-10-PCS; principal; 2022-09-27)
PROC: 5A09357 Assistance with Respiratory Ventilation, Less than 24 Consecutive Hours, Continuous Positive Airway Pressure (ICD-10-PCS; 2022-09-28)
PROC: 5A09357 Assistance with Respiratory Ventilation, Less than 24 Consecutive Hours, Continuous Positive Airway Pressure (ICD-10-PCS; 2022-09-29)
PROC: 5A09357 Assistance with Respiratory Ventilation, Less than 24 Consecutive Hours, Continuous Positive Airway Pressure (ICD-10-PCS; 2022-09-30)
PROC: 5A09357 Assistance with Respiratory Ventilation, Less than 24 Consecutive Hours, Continuous Positive Airway Pressure (ICD-10-PCS; 2022-10-01)
DX: A41.9 Sepsis, unspecified organism (principal); J96.01 Acute respiratory failure with hypoxia; E43 Unspecified severe protein-calorie malnutrition; J44.1 Chronic obstructive pulmonary disease with (acute) exacerbation; F12.10 Cannabis abuse, uncomplicated; F11.10 Opioid abuse, uncomplicated; E87.6 Hypokalemia; J98.01 Acute bronchospasm; J44.0 Chronic obstructive pulmonary disease with (acute) lower respiratory infection; F17.200 Nicotine dependence, unspecified, uncomplicated; J18.9 Pneumonia, unspecified organism; Z20.822 Contact with and (suspected) exposure to COVID-19; G89.29 Other chronic pain; K80.20 Calculus of gallbladder without cholecystitis without obstruction; Z79.891 Long term (current) use of opiate analgesic; Z88.0 Allergy status to penicillin; Z79.899 Other long term (current) drug therapy; Z90.49 Acquired absence of other specified parts of digestive tract; Z68.29 Body mass index [BMI] 29.0-29.9, adult
CPT/HCPCS: 36415; 36600; 71045; 71275; 76376; 80048; 80053; 80307; 82803-TC; 83735; 83880; 84484; 85007; 85025; 85027; 85379; 87040; 93005; 93306; 93970; 93971; 94640; 94660; 94760; 96365; 96375; 97110-GP; 97116-GP; 97530-GP; 99285; C9113; G0378; J0360; J0456; J0696; J1030; J1956; J2060; J2405; J2930; J3480; J7050; J7060; Q0144; Q9967